=== PATIENT | female | born 1955 | race Caucasian/White ===

== ENCOUNTER 2020-05-16 11:27 | Emergency (ER) | payer BC, SELFPAY ==
--- NOTE | 2020-05-16 11:41 | HMH.EDUTC ---
[facility] [place] Clinical Impression: Exposure to COVID-19 virus Disposition: Home, Self-Care Condition on Discharge: Good Instructions: Preventing the Spread of Coronavirus Discharge Instructions Additional Instructions: Drink plenty of fluids. Take tylenol for pain or fever. Return if you begin to have difficulty breathing. Follow up with your regular doctor. GO TO THE ER FOR ANY WORSENING SYMPTOMS Referrals: Herminio Whitney MD [Primary Care Provider] - Time of Disposition: 11:42 Medical Decision Making - Medical Records Medical records reviewed: No: I reviewed the patient's medical records. - Anil Inquiry Pt receiving controlled substance: No Vital Signs: 05/16/20 11:53 05/16/20 12:05 Temperature 97.8 F 97.8 F Temperature Source Oral Oral Pulse Rate 71 Pulse Rate [Radial] 71 Respiratory Rate 18 18 Blood Pressure 145/92 H Blood Pressure [Right Arm] 145/92 H Blood Pressure Mean [Right Arm] 109 Blood Pressure Source Automatic Cuff Blood Pressure Source [Right Arm] Automatic Cuff Blood Pressure Position Sitting Blood Pressure Position [Right Arm] Sitting 02 Sat by Pulse Oximetry 98 Oxygen Delivery Method Room Air Room Air Orders (Tests/Meds): ORDERS Category Date Time Status Covid-19 Nasal PCR Sendout [facility] 05/16/20 11:40 Received [facility] [place] HPI - General Stated complaint: possible covid exposure Time Seen by Provider: 05/16/20 11:41 - History of Present Illness Provider Complaint: She has been exposed to covid and needs a test. - Related Data Allergies Allergy/AdvReac Type Severity Reaction Status Date / Time No Known Allergies Allergy Verified 05/16/20 11:56 [facility] History - Hepatitis A Screen Attestation statement:: This patient has been screened for Hepatitis A risk factors. I have reviewed the patient's past medical history: Yes ROS Obtained: Yes All systems reviewed & no additional complaints - Constitutional Constitutional: Reports system reviewed and no additional complaints, except as docu - Eyes Eyes: Reports system reviewed and no additional complaints, except as docu - ENT Ears, Nose, Mouth, and Throat: Reports system reviewed and no additional complaints, except as docu - Cardiovascular Cardiovascular: Reports system reviewed and no additional complaints, except as docu - Respiratory Respiratory: Yes system reviewed and no additional complaints, except as docu - Gastrointestinal Gastrointestingal: Reports: system reviewed and no additional complaints, except as docu Physical Exam - General General appearance: alert, in no apparent distress - Head Head exam: atraumatic, normocephalic, normal inspection - Eye Eye exam: Present: normal appearance, PERRL, EOMI - ENT ENT exam: Present: normal exam, normal oropharynx, mucous membranes moist, TM's normal bilaterally, normal external ear exam - Neck Neck exam: Present: normal inspection, full ROM, trachea midline. Absent: meningismus, lymphadenopathy - Chest Chest inspection: Present: normal inspection, symmetric chest wall rise. Absent: tenderness - Respiratory Respiratory exam: Present: normal lung sounds bilaterally. Absent: respiratory distress - Cardiovascular Cardiovascular exam: Present: regular rate, normal rhythm. Absent: JVD - Abdominal Exam Abdominal exam: Present: soft, normal bowel sounds. Absent: distention, tenderness, guarding - Extremities Exam Extremities exam: Present: normal inspection, full ROM, normal capillary refill. Absent: calf tenderness - Back Exam Back exam: Present: normal inspection. Absent: tenderness - Neurological Exam Neurological exam: Present: alert, oriented X3 - Psychiatric Psychiatric exam: Present: normal affect, normal mood - Skin Skin exam: Present: warm, dry, intact, normal color - Lymphatic Lymphatic Findings: no adenopathy
[2020-05-16 11:53] VITALS: BP 145/92; PULSE 71; RESP 18; TEMP 36.6; O2SAT 98; BMI 31.3
[2020-05-16 12:05] VITALS: BP 145/92; PULSE 71; RESP 18; TEMP 36.6; O2SAT 98
[2020-05-18 06:22] LABS: Covid-19 Nasal PCR Sendout Lex NOT DETECTED
== END 2020-05-16 12:05 | disposition home or self-care (01) ==
PROVIDERS: Emergency Provider Nurse Practitioner Family; PCP Emergency Medicine
DX: Z20.828 Contact with and (suspected) exposure to other viral communicable diseases (principal)
CPT/HCPCS: 99201; U0004